=== PATIENT | female | born 2000 | race Caucasian/White ===

== ENCOUNTER 2022-10-06 07:35 | Inpatient (IN) ==
[2022-10-06] MEDS ORDERED: OXYTOCIN 30 UNITS/500 ML BAG IV PRN (09:16)
[2022-10-06] MEDS ORDERED: LIDOCAINE 1% LOCAL 20 ML VIAL INFIL PRN (09:16)
[2022-10-06] MEDS ORDERED: DINOPROSTONE 10 MG INSERT PV ONE (09:23)
--- NOTE | 2022-10-06 09:31 | History & Physical Report ---
Date of Service October 06, 2022 Assessment & Plan (1) Post-dates : Plan: Cervidil for cervical ripening Admission and Anticipated Discharge Date Admission Date: October 06, 2022 History of Present Illness Chief Complaint: induction of labor Primary Care Provider: Lilliana Mistry PA-C 22 F P0000 at 40.1 weeks admitted for IOL for post-dates. GBS is negative. Allergies Allergy/AdvReac Type Severity Reaction Status Date / Time Penicillins Allergy Rash Verified 10/06/22 09:03 Sulfa (Sulfonamide Allergy Rash Verified 10/06/22 09:02 Antibiotics) Home Medications Medication Instructions Recorded Confirmed Type vits no.124-ferrous fum 1 tab PO DAILY 10/06/22 10/06/22 History 27 mg iron-folic acid 800 mcg tablet ( Vitamin) Patient History Surgical History History of tonsillectomy Social History Smoking Status: Never smoker Hx Alcohol Use: No Hx Substance Use: No Beliefs That Will Affect Care: None marital status: Current Living Situation: Spouse Other Information That Helps Us Care for You: No Feels Safe at Home: Yes Safety Concerns: Feels Safe At This Time Assistive Devices: None OB History primip [employer] History neg Physical Exam Constitutional: WD/WN, vitals as above Eyes: PERRL, conjunctivae normal, anicteric sclerae Respiratory: normal respiratory effort, lungs clear to auscultation Cardiovascular: RRR, no murmur, no edema Gastrointestinal (Abdomen): Inspection/Auscultation: abdomen normal to inspection Musculoskeletal: Extremities: extremities normal to inspection Skin: no rashes, warm and dry Neurologic: patellar DTR's 2+ bilat, sensation intact Psychiatric: A+Ox3, euthymic affect Genitourinary: no vaginal lesions, no adnexal mass OB Exam Abdomen: + fundal height, + vertex, + posterior and + estimated weight (8-9 lbs.) Manual OB Exam: + cervical dilation, + cervical effacement 20% and + station high OB Exam Monitor Tracing: + external FHT monitor used, + external uterine monitor used, + category I and + normal FHT variability cervix closed/thick/posterior/firm. Results & Data Vital Signs (Past 12 Hours) Vital Signs Temp Pulse Resp BP 10/06/22 08:12 36.5 C 20 10/06/22 07:54 87 136/84 Code Status & VTE Plan VTE Prophylaxis Plan VTE Prophylaxis will be ordered: No Monitoring External Monitor Cat 1 no ctx
[2022-10-06 09:47] LABS: Hematocrit (blood only) 35.4 % (37.0-47.0); Hemoglobin 11.7 g/dl (12.0-16.0); Mean Corpuscular Hemoglobin 29.3 pg (25.0-34.0); Mean Corpuscular Hgb Conc 33.1 g/dL (32.0-36.0); Mean Corpuscular Volume 88.5 fL (80.0-100.0); Mean Platelet Volume 11.6 fL (9.4-12.4); Platelet Count 191 K/uL (130-400); RDW Coefficient of Variation 14.7 % (11.5-14.5); RDW Standard Deviation 46.8 fL (36.4-46.3); White Blood Count 9.81 K/ul (4.8-10.8)
--- NOTE | 2022-10-06 09:55 | Labor Progress Brief Note ---
Date of Service October 06, 2022 Assessment & Plan Admission and Anticipated Discharge Date Admission Date: October 06, 2022 Physical Exam Genitourinary: OB Exam Monitor Tracing: + external FHT monitor used, + external uterine monitor used, + category I and + normal FHT variability Cervidil 10 mg placed vaginally Results & Data Vital Signs (Past 12 Hours) Vital Signs Temp Pulse Resp BP 10/06/22 08:12 36.5 C 20 10/06/22 07:54 87 136/84
[2022-10-06] MEDS ORDERED: BUTORPHANOL TARTRATE 1 MG/ML VIAL IV PRN (21:34)
--- NOTE | 2022-10-06 21:51 | Labor Progress Brief Note ---
Date of Service October 06, 2022 Assessment & Plan Admission and Anticipated Discharge Date Admission Date: October 06, 2022 Physical Exam Genitourinary: Manual OB Exam: + cervical dilation fingertip, + cervical effacement 50% and + station high OB Exam Monitor Tracing: + external FHT monitor used, + external uterine monitor used, + category I and + normal FHT variability Otero with 35 ml saline placed transcervically Results & Data Vital Signs (Past 12 Hours) Vital Signs Temp Pulse Resp BP 10/06/22 19:14 37.0 C 18 10/06/22 19:11 85 10/06/22 19:11 138/82 10/06/22 15:47 18 10/06/22 15:47 36.6 C 18 10/06/22 15:47 63 10/06/22 15:47 141/83 H 10/06/22 13:11 73 10/06/22 13:11 140/84 10/06/22 12:55 85 10/06/22 12:55 145/91 H 10/06/22 11:25 20 10/06/22 11:25 36.6 C 20 10/06/22 11:25 80 10/06/22 11:25 136/75
[2022-10-07] MEDS: miSOPROStoL 50 MCG TAB PO SCH ×5 (00:22→22:09)
[2022-10-07] MEDS ORDERED: OXYTOCIN 30 UNITS/500 ML BAG IV PRN (08:59)
[2022-10-07] MEDS: LACTATED RINGER'S 1,000 ML IV PRN (22:12)
[2022-10-08] MEDS: miSOPROStoL 50 MCG TAB PO SCH ×3 (04:00→09:10)
[2022-10-08] MEDS: LACTATED RINGER'S 1,000 ML IV PRN ×2 (07:30→08:10)
[2022-10-08] MEDS ORDERED: fentaNYL citrate PF 100 MCG/2 ML VIAL ONE (07:38)
[2022-10-08] MEDS ORDERED: fentaNYL 2MCG/ML ROPIVACAINE 1.25MG/ML 100 ML BAG EPI ONE (07:38)
[2022-10-08] MEDS ORDERED: ePHEDrine sulfate 50 MG/ML AMP ONE (07:38)
[2022-10-08] MEDS ORDERED: SODIUM CHLORIDE 0.9% PF INJ 10 ML VIAL ONE (07:38)
[2022-10-08] MEDS ORDERED: LIDOCAINE 2%/EPINEPHRINE 1:200,000 20 ML PF ONE (07:38)
[2022-10-08] MEDS ORDERED: BUPIVACAINE 0.25% PF 30 ML VIAL ONE (07:38)
--- NOTE | 2022-10-08 07:39 | Labor Progress Brief Note ---
Date of Service October 08, 2022 Assessment & Plan (1) Post-dates : Plan: Pt doing well FHR: CAT1 Ctx irregular Unable to start Pitocin as ordered yesterday because of staff shortage Plan Epidural analgesia SROM after epidural Admission and Anticipated Discharge Date Admission Date: October 06, 2022 Results & Data Vital Signs (Past 12 Hours) Vital Signs Temp Pulse Resp BP 10/08/22 07:14 85 140/82 10/07/22 23:47 72 136/85 10/07/22 23:16 75 126/73 10/07/22 22:47 68 130/74 10/07/22 22:16 91 H 155/89 H 10/07/22 22:06 96 H 146/84 H 10/07/22 19:57 37.0 C 71 18 141/84 H
--- NOTE | 2022-10-08 07:59 | Anesthesiology Consultation ---
Date of Service October 08, 2022 Assessment & Plan Chart Review Chart Review: Acceptable Risk for Surgery, Patient NOT seen in Pre Admission Testing and Acceptable Risk for Labor Epidural Consults Requested none ASA ASA2 Proposed Anesthesia Anesthesia Type: Labor Epidural and CSE History Height/Weight Height: 5 ft 5.5 in Weight: 112.037 kg Allergies Allergy/AdvReac Type Severity Reaction Status Date / Time Penicillins Allergy Rash Verified 10/06/22 09:03 Sulfa (Sulfonamide Allergy Rash Verified 10/06/22 09:02 Antibiotics) Medications Home Medications Medication Instructions Recorded Confirmed Last Taken vits no.124-ferrous fum 1 tab PO DAILY 10/06/22 10/06/22 Unknown 27 mg iron-folic acid 800 mcg tablet ( Vitamin) Active Medications Generic Name Dose Route Start Last Admin Trade Name Freq PRN Reason Stop Dose Admin Butorphanol Tartrate 1 mg 10/06/22 21:34 10/07/22 22:11 Butorphanol Tartrate 1 Mg/Ml Vial IV 11/05/22 21:33 1 mg Q2R PRN Administration Pain Lactated Ringer's 1,000 mls @ 125 mls/hr 10/06/22 09:16 10/08/22 07:30 Lr IV 10/08/22 09:15 999 mls/hr .Q8H PRN Administration L&D Protocol Protocol Misoprostol 50 mcg 10/07/22 00:00 10/08/22 04:00 Misoprostol 50 Mcg Tab PO 11/06/22 00:00 Not Given Q4 LITO Exercise / Class Metabolic Activity II 4-5 Yardwork/Stairs/Walk up hill Past Surgical History Surgical History History of tonsillectomy Past Anesthesia History No Hx of Anesthesia Complications and No Family Hx of Anesthesia Complications History of PONV No Hx of PONV and No Hx of Motion Sickness Social History Smoking Status: Never smoker Hx Alcohol Use: No Hx Substance Use: No substance use type: does not use Physical Exam Vital Signs Last Vital Signs Temp 37.0 C 10/07/22 19:57 Pulse 85 10/08/22 07:14 Resp 18 10/07/22 19:57 BP 140/82 10/08/22 07:14 Testing Laboratory Results 10/06/22 09:27 Blood Type B Positive 10/06/22 09:27 Antibody Screen NEGATIVE 10/06/22 09:27
[2022-10-08] MEDS ORDERED: fentaNYL citrate PF 100 MCG/2 ML VIAL EPI STA (08:35)
[2022-10-08] MEDS ORDERED: ONDANSETRON INJ 2 MG/ML 2 ML VIAL IV PRN (08:35)
[2022-10-08] MEDS ORDERED: ROPIVACAINE 0.5% PF 5 MG/ML 20 ML VIAL EPI PRN (08:35)
[2022-10-08] MEDS ORDERED: NALOXONE HCL 1 MG in SODIUM CHLORIDE 0.9% 1000ML 1,000 ML IV PRN (08:35)
[2022-10-08] MEDS ORDERED: PROMETHAZINE HCL 25 MG in SODIUM CHLORIDE 0.9% 50 ML IV PRN (08:35)
[2022-10-08] MEDS ORDERED: LIDOCAINE 2%/EPINEPHRINE 1:200,000 20 ML PF EPI STA (08:35)
[2022-10-08] MEDS ORDERED: LIDOCAINE 2% MPF LOCAL 5 ML VIAL EPI PRN (08:35)
[2022-10-08] MEDS ORDERED: SODIUM CHLORIDE 0.9% PF INJ 10 ML VIAL EPI PRN (08:35)
[2022-10-08] MEDS ORDERED: diphenhydrAMINE 50 MG/ML VIAL IV PRN (08:35)
[2022-10-08] MEDS ORDERED: fentaNYL citrate PF 100 MCG/2 ML VIAL EPI PRN (08:35)
[2022-10-08] MEDS ORDERED: ePHEDrine sulfate 50 MG/ML AMP IV PRN (08:35)
[2022-10-08] MEDS ORDERED: fentaNYL 2MCG/ML ROPIVACAINE 1.25MG/ML 100 ML BAG EPI PRN (08:35)
[2022-10-08] MEDS ORDERED: BUPIVACAINE 0.25% PF 30 ML VIAL EPI PRN (08:35)
[2022-10-08] MEDS ORDERED: SODIUM CHLORIDE 0.9% PF INJ 10 ML VIAL EPI STA (08:35)
[2022-10-08] MEDS ORDERED: NALBUPHINE HCL INJ 10 MG/ML AMP IV PRN (08:35)
[2022-10-08] MEDS ORDERED: NALOXONE HCL 0.4 MG/1 ML VIAL/CARP IV PRN (08:35)
[2022-10-08] MEDS ORDERED: BUPIVACAINE 0.25% PF 30 ML VIAL EPI STA (08:35)
[2022-10-08] MEDS ORDERED: OXYTOCIN 30 UNITS/500 ML BAG IV PRN ×2 (08:52→16:18)
--- NOTE | 2022-10-08 08:55 | Labor Progress Brief Note ---
Date of Service October 08, 2022 Assessment & Plan Admission and Anticipated Discharge Date Admission Date: October 06, 2022 Physical Exam Genitourinary: Manual OB Exam: + cervical dilation 4 cm, + cervical effacement 90%, + station -2 and + amniotic fluid clear OB Exam Monitor Tracing: + external FHT monitor used, + external uterine monitor used, + category I and + normal FHT variability AROM with clear fluid Results & Data Vital Signs (Past 12 Hours) Vital Signs Temp Pulse Resp BP Pulse Ox 10/08/22 08:52 68 97 10/08/22 08:49 82 106/73 10/08/22 08:47 73 96 10/08/22 08:42 73 96 10/08/22 08:37 97 10/08/22 08:37 66 10/08/22 08:37 78 118/74 10/08/22 08:35 75 112/73 10/08/22 08:33 82 103/62 10/08/22 08:32 80 97 10/08/22 08:31 69 120/63 10/08/22 08:27 91 H 125/84 97 10/08/22 08:22 111 H 97 10/08/22 08:17 106 H 97 10/08/22 08:12 109 H 99 10/08/22 08:07 115 H 99 10/08/22 08:08 89 133/81 10/08/22 07:14 36.6 C 85 20 140/82 10/07/22 23:47 72 136/85 10/07/22 23:16 75 126/73 10/07/22 22:47 68 130/74 10/07/22 22:16 91 H 155/89 H 10/07/22 22:06 96 H 146/84 H
[2022-10-08] MEDS ORDERED: bisacodyL 10 MG SUPP PR PRN (16:18)
[2022-10-08] MEDS ORDERED: BENZOCAINE 20% AER SPR 82.5 GM CAN EXT PRN (16:18)
[2022-10-08] MEDS ORDERED: ACETAMINOPHEN 325 MG TAB PO PRN (16:18)
[2022-10-08] MEDS ORDERED: DIPHTHERIA/TETANUS/PERTUSSIS Vaccine (Tdap, Age 7+yrs) 0.5mL SYR/VL IM ONE (16:18)
[2022-10-08] MEDS ORDERED: HYDROCORTISONE ACETATE 25 MG SUPP PR PRN (16:18)
--- NOTE | 2022-10-08 16:19 | Anesthesia Procedure Note ---
Date of Service October 08, 2022 Anesthesia Post Epidural Note Vital Signs Vital Signs: Temp Pulse Resp BP Pulse Ox 37.0 C 96 H 20 141/81 H 97 10/08/22 15:16 10/08/22 16:16 10/08/22 15:16 10/08/22 16:16 10/08/22 16:07 Notes Mental Status: alert / awake / arousable Nausea / Vomiting: adequately controlled Pain: adequately controlled Airway Patency, RR, SpO2: stable & adequate BP & HR: stable & adequate Hydration State: stable & adequate Neuraxial Anesthesia: was administered and sensory block is resolving Anesthetic Complications: no major complications apparent Epidural: Removed without complications and With tip intact
--- NOTE | 2022-10-08 16:23 | Delivery Summary ---
Vaginal Delivery Summary Date of Service October 08, 2022 Vaginal Delivery Summary Delivery Note live female SHAWNA SHAWNA over intact perineum with nuchal cord x3 reduced at time of delivery. Cord blood obtained followed by spontaneous delivery of intact placenta. Small bilateral vaginal tears at hymenal remnant at 3:00 and 9:00 repaired with 3/0 Vicryl suture. EBL 200 ml. Final sponge, needle and instrument count are correct. Mom and baby stable.
[2022-10-08] MEDS: IBUPROFEN 600 MG TAB PO PRN (17:36)
[2022-10-08] MEDS: DOCUSATE SODIUM 100 MG CAP PO SCH (20:17)
[2022-10-09 07:18] LABS: Hematocrit (blood only) 29.1 % (37.0-47.0); Hemoglobin 9.6 g/dl (12.0-16.0); Mean Corpuscular Hemoglobin 29.4 pg (25.0-34.0); Mean Corpuscular Volume 89.3 fL (80.0-100.0); Mean Platelet Volume 11.9 fL (9.4-12.4); Platelet Count 176 K/uL (130-400); RDW Standard Deviation 47.8 fL (36.4-46.3); Red Blood Count 3.26 M/uL (4.20-5.40); White Blood Count 13.82 K/ul (4.8-10.8)
[2022-10-09] MEDS ORDERED: PRENATAL VITAMIN 1 TAB PO SCH (09:00)
[2022-10-09] MEDS: FERROUS SULFATE 325 MG TAB PO SCH (09:26)
[2022-10-09] MEDS: DOCUSATE SODIUM 100 MG CAP PO SCH ×2 (09:26→20:30)
[2022-10-09] MEDS: PRENATAL VITAMIN 1 TAB PO SCH (09:26)
--- NOTE | 2022-10-09 11:15 | Obstetrical Progress Note ---
Date of Service October 09, 2022 Subjective Ambulation: ambulating normally Voiding: no voiding problems Passing Gas:: Yes Diet Tolerance:: regular diet Lochia:: Small Feeding Type:: breast feeding Current Pain Level(1-10): 0 doing well Physical Exam Constitutional WD/WN, vitals as above Gastrointestinal (Abdomen) Inspection/Auscultation: abdomen normal to inspection fundus firm below U abdomen soft and non-tender Musculoskeletal Extremities: extremities normal to inspection Skin no rashes, warm and dry Neurologic patellar DTR's 2+ bilat, sensation intact Psychiatric A+Ox3, euthymic affect Results & Data Vital Signs (Past 12 Hours) Vital Signs Temp Pulse Resp BP Pulse Ox O2 Del Method 10/09/22 07:30 36.7 C 92 H 18 123/78 96 Room Air 10/09/22 02:54 36.8 C 96 H 18 121/78 97 Room Air 10/08/22 23:21 36.7 C 99 H 18 142/87 H 97 Room Air Laboratory Results 10/06/22 10/06/22 10/06/22 09:27 09:27 Unknown WBC 9.81 RBC 4.00 L Hgb 11.7 L Hct 35.4 L MCV 88.5 MCH 29.3 MCHC 33.1 RDW Std Deviation 46.8 H RDW Coeff of Sheila 14.7 H Plt Count 191 MPV 11.6 SARS-CoV-2, RNA, NAAT NEGATIVE Blood Type B Positive Antibody Screen NEGATIVE 10/09/22 06:02 WBC 13.82 H RBC 3.26 L Hgb 9.6 L Hct 29.1 L MCV 89.3 MCH 29.4 MCHC 33.0 RDW Std Deviation 47.8 H RDW Coeff of Sheila 15.0 H Plt Count 176 MPV 11.9 SARS-CoV-2, RNA, NAAT Blood Type Antibody Screen
[2022-10-09] MEDS ORDERED: bisacodyL 5 MG TABEC PO SCH (20:00)
[2022-10-10 06:26] LABS: Hematocrit (blood only) 27.4 % (37.0-47.0)
[2022-10-10] MEDS: DOCUSATE SODIUM 100 MG CAP PO SCH (08:07)
[2022-10-10] MEDS: IBUPROFEN 600 MG TAB PO PRN (08:07)
[2022-10-10] MEDS: PRENATAL VITAMIN 1 TAB PO SCH (08:07)
[2022-10-10] MEDS: FERROUS SULFATE 325 MG TAB PO SCH (08:07)
--- NOTE | 2022-10-10 11:07 | Obstetrical Progress Note ---
Date of Service October 10, 2022 Assessment & Plan (1) Normal course: PPD #1 Pt doing well no complaints disch home with instructions Subjective Ambulation: ambulating normally Voiding: no voiding problems Passing Gas:: Yes Diet Tolerance:: regular diet Lochia:: Small Feeding Type:: breast feeding Review of Systems All systems reviewed & are unremarkable except as noted in HPI & below Physical Exam Constitutional WD/WN, vitals as above well developed and well nourished Eyes PERRL, conjunctivae normal, anicteric sclerae Neck trachea midline, no thyromegaly Respiratory normal respiratory effort, lungs clear to auscultation Auscultation: no crackles, no rales and no wheezes Cardiovascular RRR, no murmur, no edema Gastrointestinal (Abdomen) normal bowel sounds, soft, nontender, no hepatosplenomegaly Uterus is below umbilicus Musculoskeletal no cyanosis or clubbing, extremities motor strength 5/5 Skin no rashes, warm and dry Neurologic patellar DTR's 2+ bilat, sensation intact Psychiatric A+Ox3, euthymic affect Genitourinary normal external appearance Results & Data Vital Signs (Past 12 Hours) Vital Signs Temp Pulse Resp BP Pulse Ox O2 Del Method 10/10/22 07:40 36.9 C 90 18 117/71 97 Room Air 10/09/22 23:20 36.8 C 96 H 18 135/85 96 Room Air
--- NOTE | 2022-10-10 11:18 | Discharge Summary ---
Date of Service October 10, 2022 Admission HPI Per Admitting Provider 22 F P0000 at 40.1 weeks admitted for IOL for post-dates. GBS is negative. Discharge Data Consultations 10/06/22 09:16 Consult Anesthesiology Stat Hospital Course (1) Normal course: Plan Post op course was unremarkable and pt is discharges home in stable condition. Discharge instructions including medications,diet, activity and follow up appointments are reviewed with pt. Discharge Instructions Post op course was unremarkable and pt is discharges home in stable condition. Discharge instructions including medications,diet, activity and follow up appointments are reviewed with pt.
== END 2022-10-10 12:23 | disposition home or self-care (01) | DRG 807 ==
LOC: 4S3 07:35 → 4S1 07:46 → 4E2 10-08 18:16